=== PATIENT | male | born 1970 | race Caucasian/White ===

== ENCOUNTER 2018-04-03 22:11 | Inpatient (IN) | payer OTHER ==
[~2018-04-03] VITALS: Ht 182.9 cm; Wt 125.0 kg
[~2018-04-03 22:11] MED LIST: LIPITOR80 MG PO; LITE COAT ASPI325 M1 PO; LOSARTAN POTASS50 MG PO
[2018-04-04] MEDS ORDERED: TYLENOL EXTRA500 MG PO (11:36)
[2018-04-04] MEDS ORDERED: BENADRYL25 MG PO (11:37)
[2018-04-04 11:48] VITALS: BP 125/79
[2018-04-04 18:37] VITALS: BP 147/86
[2018-04-04 19:25] VITALS: BP 190/96
[2018-04-04 22:00] VITALS: BP 154/88; BP 164/91
[2018-04-04 23:30] VITALS: BP 169/91
[2018-04-05] VITALS (8 sets, daily range): BP systolic 139–190; BP diastolic 76–102
[2018-04-05 06:18] LABS: HEMATOCRIT 39.7 % (38.0-50.0); HEMOGLOBIN 13.2 G/DL (12.5-16.6); MCH 29.7 PG (29.0-34.0); MCHC 33.2 G/DL (30.0-36.0); MCV 89.4 FL (86-99); PLATELET COUNT 185 K/uL (156-360); RBC DIS.WIDTH-CV 12.9 % (11.8-14.6); RBC DIS.WIDTH-SD 41.8 % (39-53); RED BLOOD COUNT 4.44 M/uL (4.00-5.50); WHITE BLOOD COUNT 11.2 K/uL (4.1-10.2)
[2018-04-05 06:47] LABS: CHLORIDE 103 MEQ/L (99-109); GFR ESTIMATE (CALCULATED) > 59 mL/min/ (58.99-99999); GLUCOSE 113 mg/dL (70-99); POTASSIUM 4.7 MEQ/L (3.7-5.4); SODIUM 135 MEQ/L (136-147); UREA NITROGEN (BUN) 13 mg/dL (9-23)
[2018-04-05] MEDS ORDERED: ACTIGALL300 MG PO (15:13)
[2018-04-05] MEDS ORDERED: OMEPRAZOLE20 M2 PO (15:13)
[2018-04-05] MEDS ORDERED: DILAUDID4 MG PO (15:13)
[2018-04-05] MEDS ORDERED: COLACE100 MG PO (15:13)
[2018-04-05] MEDS ORDERED: ZOFRAN8 MG PO (15:13)
[2018-04-06] VITALS: BP 156/84
[2018-04-06 03:46] VITALS: BP 131/69
[2018-04-06 06:05] LABS: HEMATOCRIT 39.4 % (38.0-50.0); HEMOGLOBIN 12.8 G/DL (12.5-16.6); MCH 28.7 PG (29.0-34.0); MCHC 32.5 G/DL (30.0-36.0); MCV 88.3 FL (86-99); PLATELET COUNT 162 K/uL (156-360); RBC DIS.WIDTH-CV 12.8 % (11.8-14.6); RBC DIS.WIDTH-SD 41.7 % (39-53); RED BLOOD COUNT 4.46 M/uL (4.00-5.50); WHITE BLOOD COUNT 10.5 K/uL (4.1-10.2)
[2018-04-06 06:44] LABS: CHLORIDE 107 MEQ/L (99-109); CREATININE 1.1 MG/DL (0.6-1.3); GFR ESTIMATE (CALCULATED) > 59 mL/min/ (58.99-99999); GLUCOSE 97 mg/dL (70-99); POTASSIUM 4.8 MEQ/L (3.7-5.4); SODIUM 139 MEQ/L (136-147); UREA NITROGEN (BUN) 13 mg/dL (9-23)
[2018-04-06 08:15] VITALS: BP 130/70
[2018-04-06] MEDS ORDERED: PHENERGAN25 MG PR (08:52)
[2018-04-06] MEDS ORDERED: METOPROLOL SUCC25 MG PO (09:10)
== END 2018-04-06 09:59 | disposition home or self-care (01) | DRG 621 ==
LOC: ENRESERV 22:11 → 2SOUTH 04-04 08:22 → 2EAST 04-04 10:59 → 2SOUTH 04-04 10:59 → ENRESERV 04-04 16:13 → 2EAST 04-04 18:26
PROVIDERS: Surgery
PROC: 0DB64Z3 Excision of Stomach, Percutaneous Endoscopic Approach, Vertical (ICD-10-PCS; principal; 2018-04-05)
DX: E66.01 Morbid (severe) obesity due to excess calories (principal); K76.0 Fatty (change of) liver, not elsewhere classified; Z68.37 Body mass index [BMI] 37.0-37.9, adult
CPT/HCPCS: 80048; 82948; 85027; 86850; 86900; 86901; 88300; C9113; G0378; J0131; J0330; J0360; J1100; J1170; J1644; J1885; J2250; J2405; J2710; J2765; J3010; J3480; J7050; J7643; S0074